=== PATIENT | male | born 1990 | race Caucasian/White ===

== ENCOUNTER 2024-12-28 13:42 | Outpatient (CLI) | payer MEDICARE, SELFPAY | END 2024-12-28 13:43 | disposition home or self-care (01) | LOC: AMB 12-31 13:41 | PROVIDERS: Visit Provider Internal Medicine | DX: R55 Syncope and collapse (principal) ==

== ENCOUNTER 2024-12-28 14:18 | Emergency (ER) | payer MEDICARE, SELFPAY ==
[2024-12-28 14:24] VITALS: BP 122/82; PULSE 71; RESP 16; TEMP 36.8; O2SAT 96; BMI 25.1
[2024-12-28 14:38] VITALS: PULSE 60; RESP 11; O2SAT 97
--- NOTE | 2024-12-28 14:42 | CRLHL7_ITS ---
For Patients: As a result of the Century Cures Act, medical imaging exams and procedure reports are released immediately into your electronic medical record. You may view this report before your referring provider. If you have questions, please contact your health care provider. INDICATION: Headache. Near-syncope. TECHNIQUE: Non-contrast CT of the head is submitted. No comparisons. FINDINGS: The ventricles, sulci and gyri are of normal size, shape and contour. Midline structures are centrally located. No convincing evidence of intra- or extra-axial fluid collections. IMPRESSION: 1. No radiographic evidence of acute intracranial abnormalities. Please note that all CT scans at this facility use dose modulation, iterative reconstruction, and/or weight-based dosing when appropriate to reduce radiation dose to as low as reasonably achievable. Dictated by Jamir Bethea MD @ 12/28/2024 3:17:35 PM (Electronically Signed)
--- NOTE | 2024-12-28 14:44 | ED.GENADULT ---
HPI - General Adult General Chief complaint: Dizziness/Vertigo Stated complaint: Near syncopal Time Seen by Provider: 12/28/24 14:30 History of Present Illness HPI narrative: This 34-year-old male comes in reporting a near-syncope episode. He states that he was sitting and feeding something to his daughter when he began to feel lightheaded. He got up and walked around and immediately felt better. 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 He wants to be sure that everything is okay. He does not report other episodes of similar symptoms. He denies using any street drugs or alcohol. He states that he does vape which helps him with his anxiety sometimes. He states that he feels back to normal at this time and arrives with normal vital signs. Related Data Home Medications ?Medication ?Instructions ?Recorded ?Confirmed No Known Home Medications 12/28/24 12/28/24 Allergies Allergy/AdvReac Type Severity Reaction Status Date / Time shellfish derived Allergy Severe Anaphylaxis Verified 12/28/24 14:24 iodine Allergy Intermediate Rash Verified 12/28/24 14:24 Review of Systems Status of ROS: Reports: 10 or more systems reviewed and unremarkable except as noted in History and below Narrative: Constitutional: No fevers, no weight gain or loss. Eyes: No discharge. No vision changes. HENT: No congestion, no sore throat, no ear pain. Cardiovascular: No chest pain, no palpitations. Respiratory: No shortness of breath, no wheezes, no cough. Gastrointestinal: No abdominal pain, no vomiting, no diarrhea. Genitourinary: No dysuria, no hematuria. Musculoskeletal: Normal range of motion. Skin: No rashes, no pruritis. Neurological: No dizziness, weakness, sensory change, speech change. Endo/Heme/Allergies: No bruising or bleeding. No polydipsia. Pysch: no suicidality, no anxiety, no insomnia. All other systems reviewed and are negative. PFSH PFSH Social History Smoking Status: Current every day smoker Do you use any of these nicotine containing products: Vaping Products Second hand tobacco smoke exposure: No How often do you have a drink containing alcohol: never AUDIT-C Alcohol total score: 0 Non-prescribed substance use: denies use Exam Narrative: Exam Narrative: Constitutional: Well-developed, well-nourished, no acute distress. HEENT: Normocephalic, atraumatic. Neck: Normal range of motion. Nontender. Supple. Heart: Regular. No murmurs. Normal rate. Intact distal pulses. Lungs: Clear to auscultation. No chest discomfort. No wheezes, rhonchi, or rales. Abdomen: Normal bowel sounds. Nontender. No rebound tenderness. Genitalia: Deferred. Back: No midline tenderness. Normal range of motion. Extremities: Normal range of motion. No injury. Skin: Intact. No rash. Warm. No erythema or pallor. Neurologic: No altered sensation. No weakness. Alert and oriented. Psychiatric: No suicidality. No anxiety or depression. No insomnia. Nursing notes and vitals signs are reviewed. Const: Vital Signs, click to edit/add: Vital Signs - 24 hr 12/28/24 14:24 12/28/24 14:38 12/28/24 14:45 Temperature 98.3 F Pulse Rate 60 60 Pulse Rate [Pulse Oximeter] 71 Respiratory Rate 16 11 L 11 L Blood Pressure Blood Pressure [Ri ght Upper Arm] 122/82 Pulse Oximetry 96 97 97 Oxygen Delivery Me thod Room Air 12/28/24 15:06 12/28/24 15:09 12/28/24 15:15 Temperature Pulse Rate 58 L 59 L 63 Pulse Rate [Pulse Oximeter] Respiratory Rate 16 15 16 Blood Pressure 125/80 Blood Pressure [Ri ght Upper Arm] Pulse Oximetry 97 96 96 Oxygen Delivery Me thod Course Vital Signs Vital signs: Initial Vital Signs Temperature 98.3 F 12/28/24 14:24 Temperature Source Temporal Artery Scan 12/28/24 14:24 Pulse Rate 71 12/28/24 14:24 Respiratory Rate 16 12/28/24 14:24 Blood Pressure 122/82 12/28/24 14:24 Blood Pressure Mean 95 12/28/24 14:24 Blood Pressure Position Sitting 12/28/24 14:24 Pulse Oximetry 96 12/28/24 14:24 Oxygen Delivery Method Room Air 12/28/24 14:24 Vital Signs Temperature 98.3 F 12/28/24 14:24 Pulse Rate 71 12/28/24 14:24 Respiratory Rate 16 12/28/24 14:24 Blood Pressure 122/82 12/28/24 14:24 Pulse Oximetry 96 12/28/24 14:24 Oxygen Delivery Method Room Air 12/28/24 14:24 Temperature 98.3 F 12/28/24 14:24 Pulse Rate 63 12/28/24 15:15 Respiratory Rate 16 12/28/24 15:15 Blood Pressure 125/80 12/28/24 15:09 Pulse Oximetry 96 12/28/24 15:15 Oxygen Delivery Method Room Air 12/28/24 14:24 Medical Decision Making MDM Narrative Medical decision making narrative: This patient comes in reporting and near syncopal episode. His exam and symptoms have all returned to normal. He has some anxiety about this and is interested in being checked out. A CT scan of his head and labs are acquired and these returned with normal findings. He is sufficiently reassured with this and is okay to return home. Lab Data Labs: Lab Results 12/28/24 Range/Units 14:50 WBC 8.86 (4.50-11.00) K/uL RBC 5.24 (4.30-5.90) m/uL Hgb 15.1 (13.5-17.5) gm/dL Hct 45.5 (37.0-53.0) % MCV 87 (80-100) fL MCH 29 (26-34) pg MCHC 33 (32-36) gm/dL RDW Coeff of Karishma 12.3 (11.5-15.5) % Plt Count 249 (140-440) K/uL Neut % (Auto) 70.0 (42.0-72.0) % Lymph % (Auto) 19.5 L (20-44) % Billings % (Auto) 7.3 (0.0-11.0) % Eos % (Auto) 1.9 (0.0-7.0) % Baso % (Auto) 0.5 (0.0-3.0) % Neut # (Auto) 6.20 (1.7-7.0) K/uL Lymph # (Auto) 1.70 (0.90-2.90) K/uL Billings # (Auto) 0.60 (0.00-0.90) K/UL Eos # (Auto) 0.17 (0.00-0.50) K/uL Baso # (Auto) 0.04 (0.00-0.30) K/uL Abs Immat Gran (auto) 0.07 (0.00-0.30) K/uL Imm/Tot Granulo (auto) 0.8 % Sodium 137 (135-149) mmol/L Potassium 4.0 (3.6-5.1) mmol/L Chloride 104 (96-114) mmol/L Carbon Dioxide 26 (20-32) mmol/L Anion Gap 7 (7-15) mEq/L BUN 12 (5-24) mg/dL Creatinine 0.9 (0.5-1.5) mg/dL Estimated Creat Clear 122.01 Estimated GFR 114 ml/min Glucose 123 H (60-115) mg/dL Calcium 8.9 (8.4-10.6) mg/dL Imaging Data CT scan - head: Radiologist's impression: No radiographic evidence of acute intracranial abnormalities. Discharge Plan Discharge Clinical Impression: Near syncope Patient Disposition: Home, Self-Care Condition: Improved Additional Instructions: Continue current plans. Use [id number] medicines as needed and directed. Follow up with MD return if symptoms are recurrent or worsening. Prescriptions: No Action No Known Home Medications Follow Up/Referrals: Provider,Not a Local [Primary Care Provider, Family Practice] Stand Alone Forms: [employer] Info Instructions
[2024-12-28 14:45] VITALS: PULSE 60; RESP 11; O2SAT 97
[2024-12-28 14:58] LABS: Hematocrit* 45.5 % (37.0-53.0); Hemoglobin* 15.1 gm/dL (13.5-17.5); Immature Granulocytes Abs Auto 0.07 K/uL (0.00-0.30); Immature Granulocytes Pct Auto 0.8 %; Mean Corpuscular HGB Conc 33 gm/dL (32-36); Mean Corpuscular Hemoglobin 29 pg (26-34); Mean Corpuscular Volume 87 fL (80-100); RDW Coefficient of Variation % 12.3 % (11.5-15.5); Red Blood Count* 5.24 m/uL (4.30-5.90); White Blood Count* 8.86 K/uL (4.50-11.00)
[2024-12-28 15:06] VITALS: PULSE 58; RESP 16; O2SAT 97
[2024-12-28 15:09] VITALS: BP 125/80; PULSE 59; RESP 15; O2SAT 96
[2024-12-28 15:15] VITALS: PULSE 63; RESP 16; O2SAT 96
[2024-12-28 15:20] LABS: Lymphocytes Absolute Auto 1.70 K/uL (0.90-2.90); Slide Review Reflex No
[2024-12-28 15:25] LABS: Chloride* 104 mmol/L (96-114); Potassium* 4.0 mmol/L (3.6-5.1); Sodium* 137 mmol/L (135-149)
[2024-12-28 15:28] LABS: Anion Gap 7 mEq/L (7-15); Blood Urea Nitrogen* 12 mg/dL (5-24); Calcium* 8.9 mg/dL (8.4-10.6); Carbon Dioxide* 26 mmol/L (20-32); Creatinine* 0.9 mg/dL (0.5-1.5); Est. Creatinine Clearance* 122.01; Estimated Glomerular Filt Rate 114 ml/min; Glucose* 123 mg/dL (60-115)
== END 2024-12-28 16:04 | disposition home or self-care (01) ==
PROVIDERS: Emergency Provider Emergency Medicine Emergency Medical Services
DX: R55 Syncope and collapse (principal)
CPT/HCPCS: 36415; 70450; 80048; 85025; 99283; 99284

== ENCOUNTER 2025-01-29 18:30 | Emergency (ER) | payer MEDICARE, SELFPAY ==
[2025-01-29 18:34] VITALS: BP 128/84; PULSE 87; RESP 16; TEMP 36.6; O2SAT 97; BMI 25.9
--- NOTE | 2025-01-29 18:53 | CT_ITS ---
Patient: ESTEFANI VEGA Facility:?[facility] Patient ID:?[id number] Site Patient ID:?[id number]. Site :?1990 Study:?CT-Head Angio W/ 95CC [id number]/29/2025 7:17:50 PM Ordering Physician:Cari Cheek Final Report: DATE: 01/29/2025 CLINICAL HISTORY: Patient with headache. TECHNIQUE: Standard helical CT image acquisition through the intracranial circulation following intravenous administration of contrast material with bolus tracking. 2D and 3D MIP images for post-processing were performed and interpreted on an independent workstation and 3D images were permanently archived. COMPARISON: CT same day. FINDINGS: There is a 2.5mm left posterior communicating artery infundibulum or aneurysm. There is no large vessel occlusion. The right internal carotid artery is normal. The right middle cerebral artery and its branches are normal. The right anterior cerebral artery and its branches are normal. The left middle cerebral artery and its branches are normal. The left anterior cerebral artery and its branches are normal. The anterior communicating artery is well visualized and appears normal. The right vertebral artery and PICA are normal. The left vertebral artery and PICA are normal. The right vertebral artery is dominant. The basilar artery is patent and appears normal. The right posterior cerebral artery is normal. The left posterior cerebral artery is normal. The visualized venous structures are patent. IMPRESSION: Either 2.5mm left posterior communicating artery infundibulum or aneurysm. Given the history of headache and the patient`s young age, definitive evaluation with diagnostic catheter angiogram is recommended. Arrangements for this to be performed by [facility]`s Neurointerventional team can be made by calling . Radha Heck M.D. Neurointerventional Radiologist [facility] Pager: Office/Appointments: [facility]: Please note that all CT scans at this facility use dose modulation, iterative reconstruction, and/or weight-based dosing when appropriate to reduce radiation dose to as low as reasonably achievable. Dictated by Radha Heck MD @ 01/30/2025 10:15:16 AM (Electronic Signature)
--- NOTE | 2025-01-29 18:55 | ED_ITS ---
HPI - General Adult General Date Seen: 01/29/25 Chief complaint: Headache/Migraine Stated complaint: Headache, L side head pain and eye Time Seen by Provider: 01/29/25 18:35 History of Present Illness HPI narrative: Patient is a 34-year-old man here for evaluation of headache. He said symptoms started abruptly at around 11:00 p.m. last night with very localized pain on left side of the top of his head. He says that kept him up all night, he would get jolts of pain and that it would settle back down. Shortly prior to coming in, he says the headache changed in location, it still seems to be arising from that same spot but now it is going back for the back of his head as well as into his forehead and behind his eye. Denies nausea or photophobia, does have a history of migraine but says this feels different. He would normally take ibuprofen if he had a migraine, but he has not taken anything for this headache. He notes that he has a family history of aneurysms and that is his primary concern. Related Data Home Medications ?Medication ?Instructions ?Recorded ?Confirmed No Known Home Medications 12/28/2412/03 Allergies Allergy/AdvReac Type Severity Reaction Status Date / Time shellfish derived Allergy Severe Anaphylaxis Verified 12/28/24 14:24 iodine Allergy Intermediate Rash Verified 12/28/24 14:24 Review of Systems Status of ROS: Reports: 10 or more systems reviewed and unremarkable except as noted in History and below [facility] Social History Smoking Status: Former smoker Do you use any of these nicotine containing products: Vaping Products Second hand tobacco smoke exposure: No How often do you have a drink containing alcohol: never AUDIT-C Alcohol total score: 0 Non-prescribed substance use: denies use Exam Narrative: Exam Narrative: Vital signs reviewed In general, alert, nontoxic young man. He looks comfortable. Head: Normocephalic, atraumatic. Eyes: Sclera clear. Pupils equal and reactive. Extraocular movements are full. ENT: Mucous membranes moist. Throat is normal. Neck: Supple without adenopathy. No meningeal signs. Heart: Regular rate and rhythm without murmur. Lungs: Clear. No increased work of breathing, crackles or wheezes. Abdomen: Soft, nontender to palpation. Extremities: Well perfused, pulses intact. No significant edema. Neurologic: Alert, conversant. Speech fluent, face symmetric. Moves all extremities equally. Skin: Warm, dry well perfused. Affect: Normal. Const: Vital Signs, click to edit/add: Vital Signs - 24 hr 01/29/25 18:34 01/29/25 19:30 01/29/25 20:00 Temperature 97.9 F Pulse Rate [Pulse Oximeter] 87 74 73 Respiratory Rate 16 16 16 Blood Pressure [Ri ght Upper Arm] 128/84 100/74 116/70 Pulse Oximetry 97 99 97 Oxygen Delivery Me thod Room Air Room Air Room Air Course Course ED Course: Patient presents with a headache which he feels is atypical for him, rates it as severe although he has not taken any home medications. I think given his family history in the atypical nature of this headache that imaging is not unreasonable, diagnostic considerations would include tension headache, migraine, intracranial hemorrhage, trigeminal neuralgia, shingles, among others. I do not see any evidence of rash right now but his description of the pain does sound somewhat neurogenic. Location is not suggestive of occipital neuralgia, mode atypical for trigeminal neuralgia as well. Patient declined essentially all meds aside from some Benadryl. He a CT of the head which I reviewed, I do not see any evidence of hemorrhage. Read as negative by Radiology. CT angiogram was read as pre limb showing a 3 mm possible aneurysm versus posterior communicating infundibulum in the left ICA. Patient does present with a left-sided headache, I reviewed these findings with Neurosurgery at [facility]. He felt that the best thing would be to have this read by the neuroradiologist to see which direction they call it. If they do feel that it is a small aneurysm, then LP would be indicated to rule out xanthoc hromia given that he developed pain last night and we are outside the 6 hour window of certainty in terms of his plain CT. If however the neuro radiologist calls this an infundibulum, further evaluation would not be needed and patient could be discharged with symptomatic treatment. As of , I am told that there is a neuro radiologist reading cases right now with [facility], we are waiting that read. Patient has been updated and is comfortable with that plan. Further conversation with [facility] apparently there is no in to read the CTA tonight. I have discussed this with the patient. I have recommended LP to rule out possible small aneurysm with sentinel bleed. Discussed the risks and benefits of LP, discussed that CT does not reliably rule out hemorrhage 24 hours after the fact. Reviewed that subarachnoid hemorrhage can lead to permanent neurologic disability or , and that not treating a an aneurysm which has bled could lead to subarachnoid hemorrhage. He declines LP at this time. He would prefer to wait for the results of his imaging tomorrow. He is neurologically intact and clearly able to make his own decisions. Therefore, I am discharging him home, with strict instructions to return to the ER if he has any significant worsening. Right now he says the headache is mild and he is feeling better. I will ask the daytime doctor tomorrow to follow-up on the CT angiogram final read and contact patient with results. Vital Signs Vital signs: Initial Vital Signs Temperature 97.9 F 01/29/25 18:34 Temperature Source Temporal Artery Scan 01/29/25 18:34 Pulse Rate 87 01/29/25 18:34 Respiratory Rate 16 01/29/25 18:34 Blood Pressure 128/84 01/29/25 18:34 Blood Pressure Mean 98 01/29/25 18:34 Blood Pressure Position Sitting 01/29/25 18:34 Pulse Oximetry 97 01/29/25 18:34 Oxygen Delivery Method Room Air 01/29/25 18:34 Vital Signs Temperature 97.9 F 01/29/25 18:34 Pulse Rate 87 01/29/25 18:34 Respiratory Rate 16 01/29/25 18:34 Blood Pressure 128/84 01/29/25 18:34 Pulse Oximetry 97 01/29/25 18:34 Oxygen Delivery Method Room Air 01/29/25 18:34 Temperature 97.9 F 01/29/25 18:34 Pulse Rate 73 01/29/25 20:00 Respiratory Rate 16 01/29/25 20:00 Blood Pressure 116/70 01/29/25 20:00 Pulse Oximetry 97 01/29/25 20:00 Oxygen Delivery Method Room Air 01/29/25 20:00 Medications Administered Medications: Discontinued Medications Generic Name Dose Route Start Last Admin Trade Name Freq PRN Reason Stop Dose Admin Acetaminophen 1,000 mg 01/29/25 19:54 01/29/25 20:12 Acetaminophen 500 Mg Tablet PO 01/29/25 19:55 Not Given ONCE ONE Diphenhydramine HCl 25 mg 01/29/25 18:52 01/29/25 19:23 Diphenhydramine 50 Mg/Ml Inj IVP 01/29/25 18:53 25 mg ONCE ONE Administration Hydrocortisone Sodium Succinate 200 mg 01/29/25 18:52 01/29/25 20:12 Hydrocortisone Sod Succinate 50 Mg/Ml Inj IVP 01/29/25 18:53 Not Given ONCE ONE Sodium Chloride 500 mls @ 500 mls/hr 01/29/25 18:52 01/29/25 20:20 0.9 % Sodium Chloride 500 Ml IV 01/29/25 19:51 Infused .Q1H ONE Infusion Metoclopramide HCl 10 mg/ 102 mls @ 306 mls/hr 01/29/25 18:52 01/29/25 19:27 Sodium Chloride IVPB 01/29/25 18:53 Not Given ONCE ONE Ondansetron HCl 4 mg 01/29/25 19:36 01/29/25 20:12 Ondansetron 2 Mg/Ml Inj IVP 01/29/25 19:37 Not Given ONCE ONE Medical Decision Making Imaging Data CT scan - head: Attestation: I have reviewed the pertinent imaging results. Radiologist's impression: Patient: SAAD GONZALEZ Facility: [facility] Site . Site : 1990 Study: CT-Head Angio W/ [facility] [id number]/2025 7:17:50 PM Ordering Physician: Burt Cheek Preliminary Report: 1. No evidence of proximal artery occlusion, high grade stenosis, dissection, or vascular malformation. 2. A 3 mm protrusion from the posterior aspect of the left supraclinoid ICA segment may represent aneurysm vs. Pcomm infundibulum (series 4 image 292). Final report per neurointerventional radiology service. Read by: Darren Huffman MD @01/29/2025 7:27:06 PM Patient: Saad Gonzalez MR#: [id number] : 1990 Acct:[id number] Loc: ED Service Date: 01/29/[address]: Ordering Physician: Adia Dallas M.D. Date of Service: 01/29/25 Procedure(s): CT head/brain wo con Accession Number(s): [id number] cc: Adia Dallas M.D.; Provider,Not a Local~ For Patients: As a result of the Cures Act, medical imaging exams and procedure reports are released immediately into your electronic medical record. You may view this report before your referring provider. If you have questions, please contact your health care provider. Indication: Headache Technique: CT of the head without contrast. Coronal and sagittal reformats. Bone and soft tissue windows. Comparison: CT 12/28/2024 Findings: No acute intracranial hemorrhage or extra-axial collection. No evidence of acute cortical infarction. No mass effect or midline shift. Normal cerebral volume. The ventricles are normal in size, shape and contour. There is normal zapata and white matter differentiation. Partially empty sella. The orbital contents are normal. No calvarial fractures. No lytic or sclerotic osseous lesions within the calvarium or skull base. Scalp and other imaged soft tissue structures are normal. Mastoid air cells are clear. Paranasal sinuses are well aerated. Leftward deviation of the nasal septum. Mild mucosal thickening in the sphenoid sinus. Impression: No acute intracranial abnormality. Partially empty sella which may represent a normal variant but can also be seen in association with idiopathic intracranial hypertension in the appropriate clinical setting. Please note that all CT scans at this facility use dose modulation, iterative reconstruction, and/or weight-based dosing when appropriate to reduce radiation dose to as low as reasonably achievable. Dictated by Darren Huffman MD @ 01/29/2025 7:21:22 PM Discharge Plan Discharge Clinical Impression: Headache Patient Disposition: Home, Self-Care Condition: Improved Instructions: Acute Headache (DC) Additional Instructions: As discussed, based on your imaging tonight I cannot rule out the possibility of a small aneurysm, nor do we have the ability to tell based on our testing tonight whether, if you do have a small aneurysm, it may have bled as of last night. You have elected not to proceed with LP tonight. As we discussed, there is a small risk of neurologic disability or , in the event that this does represent an aneurysm which bled. If you worsen, you need to come back to the ER right away. Otherwise, I will ask the physician working tomorrow, Dr. Valenzuela, to follow-up on the CT angiogram final read and to contact you with results. For right now, please do not take ibuprofen or similar nonsteroidal medications. Tylenol is okay. Prescriptions: No Action No Known Home Medications Follow Up/Referrals: Provider,Not a Local [Primary Care Provider, Family Practice] Stand Alone Forms: [employer] Info Instructions
[2025-01-29] MEDS: 0.9 % SODIUM CHLORIDE 500 ML 500 ML IV (19:23)
[2025-01-29 19:30] VITALS: BP 100/74; PULSE 74; RESP 16; O2SAT 99
[2025-01-29 20:00] VITALS: BP 116/70; PULSE 73; RESP 16; O2SAT 97
--- NOTE | 2025-01-29 20:14 | ED.NURSE ---
MD did cancel steroid as determined premed not required prior to contrast. Pt refused reglan as it gives his mother chest pain, refused zofran as he states he is not nauseated, and refused tylenol as he states he can take that at home.
--- NOTE | 2025-01-30 21:50 | ED.GENADULT ---
HPI - General Adult General Chief complaint: Headache/Migraine Stated complaint: Headache, L side head pain and eye Time Seen by Provider: 01/29/25 18:35 History of Present Illness HPI narrative: 9:50 p.m. on 01/30/2025. This is an addendum to Dr. Peterson ER note from this patient from the other day. This patient was seen in the ER for headache a couple of days ago and had a head CT that was normal and a CT angiogram that was equivocal for a 3 mm aneurysm versus infundibulum. Please see Dr. peterson notes for full details. She recommended lumbar puncture to see if there is any signs of ruptured subarachnoid but patient declined. The plan was to be to have the CTA formally read by neuro radiology yesterday to get a formal interpretation about whether not this is aneurysm or not. However it sounds like that over read was delayed. The patient called back tonight at about 9:00 p.m. to find out the results. I was able to pull up his results through [facility]. The formal interpretation per Dr. 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 Given the history of headache and the patient`s young age, definitive evaluation with diagnostic catheter angiogram is recommended. Arrangements for this to be performed by [facility]`s Neurointerventional team can be made by calling . Radha Heck M.D. I contacted the patient by phone. He discussed that he is feeling much better today and has no ongoing headache. He and I discussed that at this point still not clear whether not that was actually an aneurysm or if it is something else. If it was not aneurysm, and he did have a sentinel bleed, he could be at risk for rebleeding (which could be catastrophic). We discussed at length that there is no clear way to know whether not he has an aneurysm tonight. If he does, they are only way to know if it was ruptured was to do a lumbar puncture to look for xanthochromia. He says he was trying to avoid the LP the other night. However he does agree that he will come back to the ER tonight to get a lumbar puncture done to look for xanthochromia. We also discussed that Dr. Heck recommends following up with the [facility] neuro eventual team. I gave the patient the phone number for neurointerventional . He says he will return to the ER tonight and also call the radiologist's tomorrow.. Related Data Home Medications ?Medication ?Instructions ?Recorded ?Confirmed No Known Home Medications 12/28/24 12/28/24 Allergies Allergy/AdvReac Type Severity Reaction Status Date / Time shellfish derived Allergy Severe Anaphylaxis Verified 12/28/24 14:24 iodine Allergy Intermediate Rash Verified 12/28/24 14:24 PFSH PFS Social History Smoking Status: Former smoker Do you use any of these nicotine containing products: Vaping Products Second hand tobacco smoke exposure: No How often do you have a drink containing alcohol: never AUDIT-C Alcohol total score: 0 Non-prescribed substance use: denies use Course Vital Signs Vital signs: Initial Vital Signs Temperature 97.9 F 01/29/25 18:34 Temperature Source Temporal Artery Scan 01/29/25 18:34 Pulse Rate 87 01/29/25 18:34 Respiratory Rate 16 01/29/25 18:34 Blood Pressure 128/84 01/29/25 18:34 Blood Pressure Mean 98 01/29/25 18:34 Blood Pressure Position Sitting 01/29/25 18:34 Pulse Oximetry 97 01/29/25 18:34 Oxygen Delivery Method Room Air 01/29/25 18:34 Vital Signs Temperature 97.9 F 01/29/25 18:34 Pulse Rate 87 01/29/25 18:34 Respiratory Rate 16 01/29/25 18:34 Blood Pressure 128/84 01/29/25 18:34 Pulse Oximetry 97 01/29/25 18:34 Oxygen Delivery Method Room Air 01/29/25 18:34 Temperature 97.9 F 01/29/25 18:34 Pulse Rate 73 01/29/25 20:00 Respiratory Rate 16 01/29/25 20:00 Blood Pressure 116/70 01/29/25 20:00 Pulse Oximetry 97 01/29/25 20:00 Oxygen Delivery Method Room Air 01/29/25 20:00 Medications Administered Medications: Discontinued Medications Generic Name Dose Route Start Last Admin Trade Name Freq PRN Reason Stop Dose Admin Acetaminophen 1,000 mg 01/29/25 19:54 01/29/25 20:12 Acetaminophen 500 Mg Tablet PO 01/29/25 19:55 Not Given ONCE ONE Diphenhydramine HCl 25 mg 01/29/25 18:52 01/29/25 19:23 Diphenhydramine 50 Mg/Ml Inj IVP 01/29/25 18:53 25 mg ONCE ONE Administration Hydrocortisone Sodium Succinate 200 mg 01/29/25 18:52 01/29/25 20:12 Hydrocortisone Sod Succinate 50 Mg/Ml Inj IVP 01/29/25 18:53 Not Given ONCE ONE Sodium Chloride 500 mls @ 500 mls/hr 01/29/25 18:52 01/29/25 20:20 0.9 % Sodium Chloride 500 Ml IV 01/29/25 19:51 Infused .Q1H ONE Infusion Metoclopramide HCl 10 mg/ 102 mls @ 306 mls/hr 01/29/25 18:52 01/29/25 19:27 Sodium Chloride IVPB 01/29/25 18:53 Not Given ONCE ONE Ondansetron HCl 4 mg 01/29/25 19:36 01/29/25 20:12 Ondansetron 2 Mg/Ml Inj IVP 01/29/25 19:37 Not Given ONCE ONE Discharge Plan Discharge Clinical Impression: Headache Patient Disposition: Home, Self-Care Condition: Improved Instructions: Acute Headache (DC) Additional Instructions: As discussed, based on your imaging tonight I cannot rule out the possibility of a small aneurysm, nor do we have the ability to tell based on our testing tonight whether, if you do have a small aneurysm, it may have bled as of last night. You have elected not to proceed with LP tonight. As we discussed, there is a small risk of neurologic disability or , in the event that this does represent an aneurysm which bled. If you worsen, you need to come back to the ER right away. Otherwise, I will ask the physician working tomorrow, Dr. Valenzuela, to follow-up on the CT angiogram final read and to contact you with results. For right now, please do not take ibuprofen or similar nonsteroidal medications. Tylenol is okay. Prescriptions: No Action No Known Home Medications Follow Up/Referrals: Provider,Not a Local [Primary Care Provider, Family Practice] Stand Alone Forms: [employer] Info Instructions
== END 2025-01-29 22:12 | disposition home or self-care (01) ==
PROVIDERS: Emergency Provider Emergency Medicine
DX: R51.9 Headache, unspecified (principal)
CPT/HCPCS: 70450; 70496; 96374; 96375; 99281; 99284; 99285; J1200; J7030; Q9967